=== PATIENT | male | born 1945 | race Caucasian/White ===

== ENCOUNTER 2024-02-02 10:34 | Day surgery (SDC) | payer OTHER ==
[~2024-02-02] VITALS: Ht 182.9 cm; Wt 123.2 kg
[~2024-02-02 10:34] MED LIST: Lactated Ringer's 1,000 ML IV ONE
[2024-02-02] MEDS ORDERED: SILD25T (11:42)
[2024-02-02] MEDS ORDERED: ERGO400 (11:42)
[2024-02-02] MEDS ORDERED: Lactated Ringer's 1,000 ML IV ONE (12:15)
--- NOTE | 2024-02-02 12:22 | NUR ---
02/02/24 1222 Alia Gomez WHEN ASKED PT. IF HE HAD ANY PAIN, PT. STATED "I ALWAYS HAVE PAIN." PT. MENTIONED HAVING PAIN IN HIS HIPS & BACK. PT. RATING A "3" NOW. PT. USUALLY DOESN'T TAKE ANYTHING FOR PAIN "I JUST IGNORE IT, SOMETIMES I TAKE A NON ASPIRIN MED."
[2024-02-02] MEDS ORDERED: propofoL 50 ML IV ONE (12:37)
== END 2024-02-02 13:50 | disposition home or self-care (01) ==
LOC: ORSCSDS 10:34
PROVIDERS: Internal Medicine Gastroenterology
PROC: 0DBH8ZX Excision of Cecum, Via Natural or Artificial Opening Endoscopic, Diagnostic (ICD-10-PCS; principal; 2024-02-02 12:00)
PROC: 0DBP8ZX Excision of Rectum, Via Natural or Artificial Opening Endoscopic, Diagnostic (ICD-10-PCS; principal; 2024-02-02 12:00)
PROC: 0DBK8ZX Excision of Ascending Colon, Via Natural or Artificial Opening Endoscopic, Diagnostic (ICD-10-PCS; principal; 2024-02-02 12:00)
PROC: 0DBM8ZX Excision of Descending Colon, Via Natural or Artificial Opening Endoscopic, Diagnostic (ICD-10-PCS; principal; 2024-02-02 12:00)
DX: Z85.038 Personal history of other malignant neoplasm of large intestine (principal); D12.2 Benign neoplasm of ascending colon; D12.0 Benign neoplasm of cecum; D12.4 Benign neoplasm of descending colon; D12.8 Benign neoplasm of rectum; Z85.528 Personal history of other malignant neoplasm of kidney; G47.33 Obstructive sleep apnea (adult) (pediatric); Z99.81 Dependence on supplemental oxygen; R19.4 Change in bowel habit; E66.9 Obesity, unspecified; Z68.36 Body mass index [BMI] 36.0-36.9, adult; G62.9 Polyneuropathy, unspecified; F32.A Depression, unspecified; F43.10 Post-traumatic stress disorder, unspecified; N40.0 Benign prostatic hyperplasia without lower urinary tract symptoms; Z87.891 Personal history of nicotine dependence
CPT/HCPCS: 88305; J2704; J7120

== ENCOUNTER → 2024-04-11 | Outpatient (CLI) | payer OTHER ==
[~2024-04-11] MED LIST changes: +ERGO400; -Lactated Ringer's 1,000 ML IV ONE; +SILD25T
[2024-04-11 17:31] LABS: Creatinine Urine 89.6 mg/dL (27.00-270.00); Microalbumin, Urine Quant. 6.9 mg/L (0.000-20.000); Protein, Urine Quantitative 8.9 mg/dL (0.0-11.9)
== END | disposition home or self-care (01) ==
LOC: LAB 12:54 → LAB SHORT 12:54 → LAB FUT 04-06 09:15
PROVIDERS: Internal Medicine Nephrology
DX: N18.30 Chronic kidney disease, stage 3 unspecified (principal); D63.1 Anemia in chronic kidney disease; R76.9 Abnormal immunological finding in serum, unspecified; R94.5 Abnormal results of liver function studies; R94.6 Abnormal results of thyroid function studies; N25.81 Secondary hyperparathyroidism of renal origin; E55.9 Vitamin D deficiency, unspecified; E78.00 Pure hypercholesterolemia, unspecified; D51.8 Other vitamin B12 deficiency anemias; D52.8 Other folate deficiency anemias; D50.9 Iron deficiency anemia, unspecified
CPT/HCPCS: 81050; 82043; 82570; 84156